=== PATIENT | male | born 1980 | race Hispanic/Latino ===

== ENCOUNTER 2025-01-30 15:56 | Emergency (ER) | payer SELFPAY ==
[2025-01-30] MEDS ORDERED: Bacitracin 1 PK ONE (18:20)
== END 2025-01-30 18:40 | disposition home or self-care (01) ==
LOC: ERS 15:56
DX: S62.635A Displaced fracture of distal phalanx of left ring finger, initial encounter for closed fracture (principal); Z23 Encounter for immunization; W23.0XXA Caught, crushed, jammed, or pinched between moving objects, initial encounter
CPT/HCPCS: 12001; 90471; 90715; 96372